=== PATIENT | male | born 1970 | race Caucasian/White ===

== ENCOUNTER → 2017-11-18 | Outpatient (CLI) | payer OTHER ==
--- NOTE | 2017-12-24 07:09 | PATH ---
[address] [address] PATHOLOGY RPT PROCEDURE Name: ÁNGEL DORADO Room: [facility] Rich#: [id number] Admission: 11/18/17 Date of : 70 Discharge: Report #: [id number] Path Case #: [id number] [facility] Accession Number: [id number] . 01 Material submitted: . LEFT NECK LYMPH NODE . 01 Clinical history: . 2.5 x 1.6 x 2.2 cm . 02 Diagnosis: "Left neck lymph node", image guided needle biopsy: - Scant biopsy fragment of lymph node with atypical hyperplasia. - Minute monotypic (clonal) CD10 B cell population detected by flow cytometry. - See comment. AZJ/11/23/2017 . 02 Comment: Sections show small needle core biopsy fragments of lymph node. No well-formed germinal centers are identified. The lymphocytes are predominantly small, round and mature appearing with condensed chromatin and scant cytoplasm with admixed scattered larger lymphoid cells, granulocytes and histiocytes. Foci of acute inflammation are seen within vascular spaces. No markedly atypical cells, including Charles-Jackson cells, are identified. No granulomas or other infiltrative processes are seen. . Due to the flow cytometry findings, to highlight the naomie architecture and to identify cells in a tissue architectural context, properly controlled immunohistochemical stains are performed. . Block A1 . PAX5 - Shows scattered and small collections of small B cells CD3 - Stains the majority of cells (likely interfollicular T cells) CD10 - Stains two small partially sampled germinal centers - no large cell staining BCL6 - Stains two small partially sampled germinal centers - no large cell staining BCL2 - The small partially sampled germinal centers are non-reactive CD23 - Stains occasional scattered small cells Cyclin D1 - Lacks diffuse nuclear staining MUM-1 - Stains rare scattered small cells (likely plasma cells), no large cell staining CD30 - Stains rare scattered smaller cells CD15 - Highlights likely granulocytes ALK-1 [place] [address] PATHOLOGY RPT PROCEDURE Name: ÁNGEL DORADO Room: [facility]#: [id number] Admission: 11/18/17 Date of : 70 Discharge: Report #: [id number] Path Case #: [id number] KIRIT - Non-reactive . Flow cytometric immunophenotypic analysis was performed at [facility]. The diagnosis is "minute monotypic (clonal) CD10 positive B cell population (1% of sample) with increased cell size." There are 1% abnormal B cells with scattered properties compatible with intermediate to large cell size and characterized as CD45 pos, CD19 pos, CD20 pos, CD5 neg, CD10 pos, CD23 neg, FMC-7 pos, CD30 neg, CD38 pos, CD43 neg, HLA-DR pos and surface kappa pos. The remaining lymphocytes comprise 83% of cells. There are 15% polyclonal B cells and 67% T cells with a CD4/CD8 ratio of 3.6 and no aberrant T cell antigen expression. The majority of B cells are polytypic. 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 Please see separate flow cytometry report from [facility] ([id number]). . Overall, the diagnosis is lymph node with atypical hyperplasia along with the abnormal flow cytometry report (see above). There is no diagnostic morphologic evidence of lymphoma and the clinical significance of the flow cytometry report is unclear. Of note, this is a small porttion of a larger lesion and may not be entirely workforce services representative. If there is a strong clinical suspicion of a lymphoproliferative process, complete morphologic evaluation of the involved lymph node may provide additional information, if clinically indicated. Clinical and radiographic correlation is required. The H and E stained slides are co-reviewed with Dr. Antoni Belcher. (CLW/db; 11/23/2017) . 02 Electronically signed: . Kiki Bautista MD, Pathologist NPI- [id number] . 01 Gross description: . Received in formalin labeled "[place], Ángel, left neck lymph node," are multiple needle core fragments of rivas soft tissue ranging from 0.2 to 0.8 cm in length and measuring 0.1 cm each in diameter. The specimen is submitted entirely in cassettes A1 and A2. . A portion of the specimen is also received in RPMI solution. This portion is forwarded to an outside laboratory for flow cytometry studies. ([facility]; 11/19/2017) XDC/XDC . 02 Microscopic: . Special studies report received from [facility], [address] [place] [address], [address], [place], [address], on case [id number], labeled with their number [id number], dated 11/20/2017. . Flow Cytometry: Hematologic [place] [address] PATHOLOGY RPT PROCEDURE Name: GERSONCortesGOYOÁNGEL Carbone Luca Room: [facility]#: [id number] Admission: 11/18/17 Date of : 70 Discharge: Report #: [id number] Path Case #: [id number] Clinical History Left Neck Lymph Node . Indication for Study Evaluation for hematolymphoid neoplasia . Specimen Lymph Node, Left Neck . Viability 89% (7AAD exclusion) . Interpretation Lymph Node, Left Neck: Minute monotypic (clonal) CD10+ B-cell population (1% of sample) with increased cell size (see comments). . Comments The majority of B-cells are polytypic. 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 Correlation with all available clinical, laboratory, and morphologic data is necessary for confirmation and further classification of this process. If needed, chromosome analysis and/or FISH testing (IGH/BCL2, BCL6, and MYC with a reflex to MYC/IGH if MYC+) are available. . Populations Analyzed Abnormal B-cells: 1% Scatter properties compatible with intermediate to large cell size, cells characterized as: CD45+, CD19+, CD20+, CD5-, CD10+, CD23-, FMC7+, CD30-, CD38+, CD43-, HLA DR+, sIg kappa+. Remaining 83% B-cells: 15%, polytypic/polyclonal sIg light Lymphocytes: chain pattern T-cells: 67% no significant abnormalities of the markers tested CD4:CD8: 3.6 NK cells: 1% CD45 Negative 16% No significant reactivity with the markers tested Events/Debris: (may represent non-hematolymphoid cells, degenerated cells, debris, unlysed red blood cells, etc.) . Morphologic Evaluation A slide was reviewed for senior quality assurance specialist purposes only. . Specimen Description Cell Yield: 2.01x10 6 . 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 . Reagent(s) Used CD2, CD3, CD4, CD5, CD7, CD8, CD10, CD11b, CD19, CD20, CD23, CD30, CD38, CD43, CD45, CD56, CD57, FMC-7, HLA-DR, kappa, lambda, CytoKappa, CytoLambda . at [facility]. Carmen Quintero MD Hematopathologist . Intended Use Flow cytometry is optimally used to immunophenotypically characterize abnormal populations when they are detected. Negative flow cytometry results do not exclude lymphoma or neoplasia. Possible false negative flow cytometry results may occur in, but are not limited to, the following: neoplastic cells in Hodgkin lymphoma are not typically adequately represented by routine clinical flow cytometry; neoplastic cells may be lost or inadequately represented due to degeneration, sample processing, sampling artifact, or patchy involvement; plasma cells are typically underrepresented by flow cytometry; immature cells/blasts may be underrepresented due to hemodilution; myeloproliferative disorders and low grade myelodysplasia may not have immunophenotypic abnormalities or increased blasts. Correlation with all available clinical, laboratory, and morphologic data is always necessary to assess for the possibility of false negative flow cytometry results and to establish a diagnosis. Each marker in this analysis was used to assess for potential antigenic abnormalities or to evaluate detected abnormalities. . Disclaimer(s) This test was performed at [facility]. at [address] [place] [address], [id number] - Binding Machine Operator: Raulito Jimenes MD. [facility] is a business unit of [facility]., a wholly-owned subsidiary of [employer]. . Any image or images that accompany this report are workforce services representative images only and should not be used to render a diagnosis. . This test was developed and its [place] [address] PATHOLOGY RPT PROCEDURE Name: ÁNGEL DORADO Room: [facility]#: [id number] Admission: 11/18/17 Date of : 70 Discharge: Report #: [id number] Path Case #: [id number] [facility]. It has not been cleared or approved by the Food and Drug Administration (FDA). The FDA has determined that such clearance or approval is not necessary. . For inquiries, the physician may contact Lab: [phone] . A complete copy of the report is on file. . Professional services performed by [facility] [employer]. at [address], [place] [address]. Technical services performed by [employer]. at [address], [place] [address]. . (AMJ 11/20/2017) . 02 Pathologist provided ICD-10: R59.9 . 02 CPT . 737685, [id number], V97723 Performed at: 01 [facility] [address] [id number] MD Chico Tejada MD Phone: [phone] Performed at: 02 [facility] [address] [id number] MD Freddy Bernal MD Phone: [phone]
== END | disposition home or self-care (01) ==
LOC: M.ULTRA 07:26
DX: R59.9 Enlarged lymph nodes, unspecified (principal)

== ENCOUNTER → 2018-02-03 | Outpatient (CLI) | payer OTHER | LOC: M.ULTRA 11:00 | DX: M79.675 Pain in left toe(s) (principal) ==

== ENCOUNTER → 2018-02-03 | Outpatient (CLI) | payer OTHER | LOC: M.WC 09:38 | DX: E11.621 Type 2 diabetes mellitus with foot ulcer (principal); L97.521 Non-pressure chronic ulcer of other part of left foot limited to breakdown of skin; G43.909 Migraine, unspecified, not intractable, without status migrainosus; M10.9 Gout, unspecified; M19.90 Unspecified osteoarthritis, unspecified site; Z79.4 Long term (current) use of insulin ==

== ENCOUNTER → 2018-02-10 | Outpatient (CLI) | payer OTHER | LOC: M.WC 10:00 | DX: E11.621 Type 2 diabetes mellitus with foot ulcer (principal); L97.522 Non-pressure chronic ulcer of other part of left foot with fat layer exposed; G43.909 Migraine, unspecified, not intractable, without status migrainosus; M10.9 Gout, unspecified; M19.90 Unspecified osteoarthritis, unspecified site ==

== ENCOUNTER → 2018-04-02 | Outpatient (CLI) | payer OTHER | LOC: M.WC 08:00 | DX: E11.621 Type 2 diabetes mellitus with foot ulcer (principal); L97.522 Non-pressure chronic ulcer of other part of left foot with fat layer exposed; L84 Corns and callosities; G43.909 Migraine, unspecified, not intractable, without status migrainosus; M10.9 Gout, unspecified; M19.90 Unspecified osteoarthritis, unspecified site; Z79.4 Long term (current) use of insulin ==

== ENCOUNTER → 2018-04-09 | Outpatient (CLI) | payer OTHER | LOC: M.WC 02:19 | DX: E11.621 Type 2 diabetes mellitus with foot ulcer (principal); L97.522 Non-pressure chronic ulcer of other part of left foot with fat layer exposed; L84 Corns and callosities; M10.9 Gout, unspecified; M19.90 Unspecified osteoarthritis, unspecified site; G43.909 Migraine, unspecified, not intractable, without status migrainosus ==

== ENCOUNTER → 2018-04-16 | Outpatient (CLI) | payer OTHER | LOC: M.WC 04:33 | DX: E10.621 Type 1 diabetes mellitus with foot ulcer (principal); L97.522 Non-pressure chronic ulcer of other part of left foot with fat layer exposed; L84 Corns and callosities; E10.42 Type 1 diabetes mellitus with diabetic polyneuropathy; G43.909 Migraine, unspecified, not intractable, without status migrainosus; M10.9 Gout, unspecified; M19.90 Unspecified osteoarthritis, unspecified site ==

== ENCOUNTER → 2018-04-23 | Outpatient (CLI) | payer OTHER | LOC: M.WC 04:53 | DX: E10.621 Type 1 diabetes mellitus with foot ulcer (principal); L97.522 Non-pressure chronic ulcer of other part of left foot with fat layer exposed; L84 Corns and callosities; G43.909 Migraine, unspecified, not intractable, without status migrainosus; M10.9 Gout, unspecified; M19.90 Unspecified osteoarthritis, unspecified site ==

== ENCOUNTER → 2018-04-30 | Outpatient (CLI) | payer OTHER | LOC: M.WC 03:58 | DX: E10.621 Type 1 diabetes mellitus with foot ulcer (principal); L97.522 Non-pressure chronic ulcer of other part of left foot with fat layer exposed; L84 Corns and callosities; G43.909 Migraine, unspecified, not intractable, without status migrainosus; M10.9 Gout, unspecified; M19.90 Unspecified osteoarthritis, unspecified site ==

== ENCOUNTER → 2018-05-07 | Outpatient (CLI) | payer OTHER | LOC: M.WC 05:15 | DX: E10.621 Type 1 diabetes mellitus with foot ulcer (principal); L97.522 Non-pressure chronic ulcer of other part of left foot with fat layer exposed; L84 Corns and callosities; G43.909 Migraine, unspecified, not intractable, without status migrainosus; M10.9 Gout, unspecified; M19.90 Unspecified osteoarthritis, unspecified site ==

== ENCOUNTER → 2018-05-14 | Outpatient (CLI) | payer OTHER | LOC: M.WC 04:54 | DX: E10.621 Type 1 diabetes mellitus with foot ulcer (principal); L97.522 Non-pressure chronic ulcer of other part of left foot with fat layer exposed; L84 Corns and callosities; G43.909 Migraine, unspecified, not intractable, without status migrainosus; M10.9 Gout, unspecified; M19.90 Unspecified osteoarthritis, unspecified site ==